=== PATIENT | male | born 1975 ===

== ENCOUNTER 2016-11-01 19:46 | Observation (INO) | payer BC ==
--- NOTE | 2016-11-01 20:17 | C.PDOC ---
History Of Present Illness 41 y/o male presents to the ED for evaluation of new onset headache which began around 6 days ago. Patient reports headache is localized to right occipital region, occurring intermittently and persist. Patient notes "I feel a bump in the area." Symptoms are worse with movement. Denies fever, nausea, vomiting as well as history of frequent headaches, or trauma. NEW ONSET WEINBERG X 6 DAYS. LOCALIZED OCCIPITAL R, INTERMIT PERSIST. "I FEEL A BUMP IN THE AREA". WORSE W MOVEMENT. NO FEVER, NV. DENIES HO FREQ WEINBERG, TRAUMA. EXAM MILD DIST NONTOXIC HEENT NO PHOTOPHOBIA; +MUSCLE SPASM R BASE SKULL W REPRODUC PAIN; NECK SUPPLE NONTEND NEURO INTACT REMIANDER NEG Time Seen by Provider: 11/01/16 20:07 Chief Complaint (Nursing): Headache History Per: Patient History/Exam Limitations: no limitations Onset/Duration Of Symptoms: Days (6) Current Symptoms Are (Timing): Still Present Quality: Aching Associated Symptoms: denies: Nausea, Vomiting Additional History Per: Patient Past Medical History Reviewed: Historical Data, Nursing Documentation, Vital Signs Vital Signs: Last Vital Signs Temp 98.3 F 11/02/16 15:00 Pulse 81 11/02/16 15:00 Resp 20 11/02/16 15:00 BP 149/93 H 11/02/16 15:00 Pulse Ox 100 11/02/16 15:00 - Medical History PMH: No Chronic Diseases Surgical History: No Surg Hx Family History: States: Unknown Family Hx - Social History Hx Alcohol Use: Yes Hx Substance Use: No - Immunization History Hx Tetanus Toxoid Vaccination: No Hx Influenza Vaccination: No Hx Pneumococcal Vaccination: No Review Of Systems Constitutional: Negative for: Fever Gastrointestinal: Negative for: Nausea, Vomiting Neurological: Positive for: Headache (localized to right occipital region ) Physical Exam - Physical Exam Appears: Non-toxic, Other (in mild distress ) Skin: Normal Color, Warm, Dry Head: Atraumatic, Normacephalic, Other (muslce spasm to right base skill with reproducible pain ) Eye(s): bilateral: Normal Inspection, Other (no photophobia) Ear(s): Bilateral: Normal Nose: Normal, No Discharge Oral Mucosa: Moist Neck: No Midline Cervical Tenderness, Supple Chest: Symmetrical, No Deformity, No Tenderness Cardiovascular: Rhythm Regular Respiratory: Normal Breath Sounds Extremity: Normal ROM, Capillary Refill (less than 2 seconds ) Neurological/Psych: Oriented x3, Normal Speech, Normal Cognition, Other (no focal deficits) Gait: Steady ED Course And Treatment - Laboratory Results Result Diagrams: 11/01/16 23:03 11/01/16 23:03 ECG: Interpreted By Me ECG Rhythm: Sinus Rhythm ECG Interpretation: Normal Rate From EC O2 Sat by Pulse Oximetry: 97 (on RA) Pulse Ox Interpretation: Normal - Radiology CXR: Interpreted by Me CXR Interpretation: Yes: No Acute Disease - CT Scan/US HEAD Other Rad Studies (CT/US): Read By Radiologist, Radiology Report Reviewed (D/W DR ESPOSITO @[facility]: STATES CT ANGIO OF LIMITED VALUE, RECOMMENDS MRI FOR FURTHER EVAL) Progress Note: CT Head ordered and reviewed. Patient received Flexril PO, Toradol IM, and Tylenol PO. Progress - Data Reviewed Data Reviewed: Lab, Diagnostic imaging, EKG, Old records - Continuity of Care Discussed patient case with:: Patient, On-call PMD-pt unassigned Discussed pt. case with identity management consultant/specialty: Neurological Surgery ED OBSERVATION Date of observation admission: 11/01/16 Time of observation admission: 20:30 - Observation admission statement Patient is being placed in observation because:: HEADACHE - Goals of Observation Goals of observation are:: SX IMPROVE, CT NEG, NEURO INTACT - Progress Note Progress Note: 11/01/16 22:13 ps feels better, weinberg resolved. VSS. NEURO INTACT [facility] FROM PRIOR EXAM. 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 WILL D/W [facility] FOR POSSIBLE TRANSFER FOR STAT MRI, POSISBLE NEUROSURG INTERVENTION 11/01/16 22:45 D/W DR [facility]: AWARE OF ER FINDINGS. RECOMMENDS CT ANGIO, CALLBACK W RESULTS. PT AGREES W PLAN. 11/02/16 01:24 [facility] REPORT REVIEWED. D/W DR BENOIT AWARE OF [facility] FINDINGS, ADVISES NO EMERGENT NEED FOR TRANSFER. 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 I have reviewed the chart and agree that the record accurately reflects my personal performance of the history, physical exam, medical decision making, and the department course for this patient. I have also personally directed, reviewed, and agree with the discharge instructions and disposition. Decision To Admit - Pt Status Changed To: Hospital Disposition Of: Observation - . Bed Request Type: Regular Admitting Physician: Jeannette Velasquez Patient Diagnosis: Headache, Abnormal CT of brain
--- NOTE | 2016-11-01 22:02 | CT ---
EXAM: CT Head Without Intravenous Contrast EXAM DATE/TIME: 11/01/2016 8:17 PM CLINICAL HISTORY: 41 years old, male; Condition or disease; Headache; Tension; Additional info: R occipital WEINBERG TECHNIQUE: Axial computed tomography images of the head/brain without intravenous contrast. All CT scans at this facility use one or more dose reduction techniques, viz.: automated exposure control; ma/kV adjustment per patient size (including targeted exams where dose is matched to indication; i.e. head); or iterative reconstruction technique. COMPARISON: There are no prior studies for comparison. FINDINGS: Brain: Ventricles are normal in size and configuration. There is no midline shift. There is an 12 x 12 mm hyperdense lesion in the posterior left parietal lobe. No other focal abnormalities are identified.. There are no abnormal fluid collections. Shaikh-white differentiation is maintained. Ventricles: See above. Bones: Cranial vault is intact. Soft tissues: unremarkable Sinuses: There is no acute sinusitis. Ears and mastoids: Middle ears and mastoids are unremarkable Orbits: Orbital contents are unremarkable. IMPRESSION: 12 x 12 mm hyperdense lesion in left posterior parietal lobe, differential diagnosis includes focal hemorrhage, vascular malformation or tumor Comparison with prior studies and/or MRI is advised
[2016-11-01 23:07] LABS: BASO % 0.3 % (0.0-2.0); EOS # 0.1 K/uL (0.0-0.7); HEMATOCRIT 42.6 % (35.0-51.0); LYMPH % 37.5 % (20.0-40.0); MEAN CELL VOLUME 86.3 fL (80.0-94.0); MEAN CORPUSCULAR HEMOGLOBIN 29.8 pg (27.0-31.0); MEAN CORPUSCULAR HGB CONC 34.6 g/dL (33.0-37.0); MEAN PLATELET VOLUME 8.7 fL (7.2-11.7); MONO # 0.6 K/uL (0.0-0.8); MONO % 7.7 % (0.0-10.0); NRBC % 0.1 % (0.0-2.0); RED CELL DISTRIBUTION WIDTH 12.8 % (11.5-14.5); WHITE BLOOD COUNT 7.9 K/uL (4.8-10.8)
[2016-11-01] MEDS ORDERED: Iodixanol 320 MG/ML 100 ML BOTTLE IV ONE (23:11)
[2016-11-01 23:16] LABS: RBC URINE < 1 /hpf (0-3); URINE BACTERIA RARE (<OCC); URINE BILIRUBIN NEGATIVE (NEGATIVE); URINE BLOOD NEGATIVE (NEGATIVE); URINE COLOR Yellow (YELLOW); URINE GLUCOSE (UA) NORMAL (Normal); URINE KETONE NEGATIVE (NEGATIVE); URINE LEUKOCYTE ESTERASE NEG Leu/uL (Negative); URINE PROTEIN NEGATIVE (NEGATIVE); URINE UROBILINOGEN NORMAL mg/dL (0.2-1.0); WBC URINE 1 /hpf (0-5)
[2016-11-01 23:16] LABS: CHLORIDE 101 mmol/L (98-107); POTASSIUM 3.7 mmol/L (3.6-5.2); SODIUM 138 mmol/L (132-148)
[2016-11-01 23:18] LABS: GFR AFRICAN-AMERICAN > 60
[2016-11-01 23:19] LABS: ALB/GLOB RATIO 1.5 (1.0-2.1); ALKALINE PHOSPHATASE 72 U/L (38-126); ALT/SGPT 44 U/L (21-72); AST/SGOT 27 U/L (17-59); BILIRUBIN,TOTAL 0.6 mg/dL (0.2-1.3); BLOOD UREA NITROGEN 17 mg/dL (9-20); CALCIUM 8.8 mg/dl (8.6-10.4); CARBON DIOXIDE 24 mmol/L (22-30); GLUCOSE,RANDOM 92 mg/dL (75-110); TOTAL PROTEIN 7.5 g/dL (6.3-8.3)
--- NOTE | 2016-11-02 07:43 | RAD ---
PROCEDURE: CHEST RADIOGRAPH, 1 VIEW HISTORY: Pre Op COMPARISON: None available. FINDINGS: LUNGS: No focal infiltrate or effusion. PLEURA: No pneumothorax or pleural fluid seen. CARDIOVASCULAR: Normal. OSSEOUS STRUCTURES: No significant abnormalities. VISUALIZED UPPER ABDOMEN: Normal. OTHER FINDINGS: None. IMPRESSION: No active disease.
--- NOTE | 2016-11-02 09:11 | CT ---
PROCEDURE: CT Angiography of the Brain. HISTORY: Abnormal CT HEAD, L PARIETAL RO BLEED VS MASS COMPARISON: Comparison is made to the previous noncontrast CT dated 11/01/2016 at 20:48 TECHNIQUE: CT angiography of the intracranial arteries was performed. Coronal and sagittal maximum intensity projection reformated images were generated. IV contrast dose: 100 mL Visipaque 320. Total exam DLP 141.[address] exam was performed using one or more of the following dose reduction techniques: Automated exposure control, adjustment of the mA and/or kV according to patient size, and/or use of iterative reconstruction technique. FINDINGS: INTERNAL CEREBRAL ARTERIES: Unremarkable. The skull base, petrous, cavernous and supraclinoid segments are bilaterally widely patient. ANTERIOR CEREBRAL ARTERIES: Unremarkable. A1 and A2 segments are widely patent. Smaller distal branches unremarkable, as visualized. MIDDLE CEREBRAL ARTERIES: Unremarkable. M1 and M2 segments are widely patent. Perisylvian branches grossly symmetric. POSTERIOR CIRCULATION: Basilar Artery: Unremarkable. Distal Vertebral Arteries: Unremarkable. Posterior Cerebral Arteries: Unremarkable. Posterior Inferior Cerebellar Arteries: Unremarkable. ANEURYSM/ VASCULAR MALFORMATIONS: No CT evidence of sizable aneurysm. OTHER FINDINGS: The hyperdense nodule noted in the previous recent CT does not corresponding to and does not appear to be contiguous with major arterial or venous system the possibility of vascular malformation is less likely. This nodule also does not demonstrate arterial hyper enhancement in this CTA. IMPRESSION: No CTA evidence of aneurysm or vascular malformation at or adjacent to the previously depicted hyperintense nodule at the left parietal white matter. The possibility of underlying small hemorrhagic mass/metastasis is not totally excluded. Consider correlation with MRI with contrast for more definitive characterization of this lesion. No evidence of occlusion or stenosis in the intracranial arteries. Preliminary report was submitted by [facility] .
--- NOTE | 2016-11-02 15:47 | MRI ---
PROCEDURE: MRI BRAIN WITHOUT CONTRAST HISTORY: headache times , hyperintense round focus in the left parietal lobe seen in the previous CT. Evaluate for mass lesion or vascular anomaly COMPARISON: Comparison is made to the previous CT and CTA of the head. TECHNIQUE: Multiplanar, multisequence MR images of the brain were obtained without intravenous contrast enhancement. FINDINGS: HEMORRHAGE: Again seen is round lesion at the posterior aspect of the left parietal white matter demonstrates heterogeneous hypointense T2 signal and heterogeneous Iso and hyper intense T1 signal. There is rim of hypointense T2 GRE and T2 signal around this lesion. DWI: No evidence of an acute or early subacute infarction. BRAIN PARENCHYMA: The above-mentioned lesions at the posterior left parietal lobe measures 11.2 millimeter in the transverse diameter and 12.9 millimeter in the AP diameter. The shape and signal characteristic of this lesion suggestive of cerebral cavernous venous malformation. No atrophy or chronic microvascular ischemic changes. VENTRICLES: Unremarkable. No hydrocephalus. CRANIUM: Unremarkable. ORBITS: Grossly unremarkable. PARANASAL SINUSES/MASTOIDS: Clear VASCULAR SYSTEM: Skull base flow voids intact. OTHER FINDINGS: None. IMPRESSION: Well defined heterogeneous signal approximately 1.1 x 1.2 centimeter lesion at the posterior aspect of the left parietal white matter. 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 Small punctate hyperintense T1 signal seen in this lesion may represent acute/ early subacute hemorrhage. Otherwise no evidence of acute pathology or suspicious lesion in the brain.
[2016-11-02 15:59] VITALS: BP 149/93; PULSE 81; RESP 20; TEMP 98.3
--- NOTE | 2016-11-02 18:45 | CP.PCM.CON ---
History of Present Illness - History of Present Illness History of Present Illness: CONSULT DICTATED EXAM ? RIGHT SUB CORTICAL DYSFUNCTION -??? POST ICTAL INCIDENTAL MRI FINDING - CAVERNOMA NEEDS EEG AND AMBULATORY VIDEO EEG AN OP PSG BARBARA /CSA NSAID FOR HIS HEADACHE Past Patient History - Infectious Disease Hx of Infectious Diseases: None - Past Medical History & Family History Past Medical History?: No - Past Social History Smoking Status: Never Smoked - MUSCULOSKELETAL/RHEUMATOLOGICAL Hx Falls: No - PSYCHIATRIC Hx Substance Use: No - SURGICAL HISTORY Hx Surgeries: No - ANESTHESIA Hx Anesthesia: No Meds Allergies/Adverse Reactions: Allergies Allergy/AdvReac Type Severity Reaction Status Date / Time No Known Allergies Allergy Unverified 11/01/16 19:55 - Medications Medications: Current Medications Famotidine (Pepcid) 20 mg PO DAILY SUNNY Last Admin: 11/02/16 09:48 Dose: 20 mg Pneumococcal Polyvalent Vaccine (Pneumovax 23 Vaccine) 0.5 ml IM .ONCE ONE Stop: 11/03/16 10:01 Results - Vital Signs Recent Vital Signs: Last Vital Signs Temp 98.3 F 11/02/16 15:00 Pulse 81 11/02/16 15:00 Resp 20 11/02/16 15:00 BP 149/93 H 11/02/16 15:00 Pulse Ox 100 11/02/16 15:00 - Labs Result Diagrams: 11/01/16 23:03 11/01/16 23:03 Labs: Laboratory Results - last 24 hr 11/01/16 11/01/16 11/01/16 22:45 23:03 23:03 WBC 7.9 RBC 4.94 Hgb 14.7 Hct 42.6 MCV 86.3 MCH 29.8 MCHC 34.6 RDW 12.8 Plt Count 184 MPV 8.7 Neut % (Auto) 53.5 Lymph % (Auto) 37.5 Menard % (Auto) 7.7 Eos % (Auto) 1.0 Baso % (Auto) 0.3 Neut # 4.2 Lymph # 3.0 Menard # 0.6 Eos # 0.1 Baso # 0.0 PT 10.9 INR 1.0 APTT 28 Sodium Potassium Chloride Carbon Dioxide Anion Gap BUN Creatinine Est GFR ( Amer) Est GFR (Non-Af Amer) Random Glucose Calcium Total Bilirubin AST ALT Alkaline Phosphatase Total Protein Albumin Globulin Albumin/Globulin Ratio Urine Color Urine Clarity Urine pH Ur Specific Greenleaf Urine Protein Urine Glucose (UA) Urine Ketones Urine Blood Urine Nitrate Urine Bilirubin Urine Urobilinogen Ur Leukocyte Esterase Urine WBC (Auto) Urine RBC (Auto) Urine Bacteria Blood Type O POSITIVE Antibody Screen Negative 11/01/16 11/01/16 23:03 23:04 WBC RBC Hgb Hct MCV MCH MCHC RDW Plt Count MPV Neut % (Auto) Lymph % (Auto) Menard % (Auto) Eos % (Auto) Baso % (Auto) Neut # Lymph # Menard # Eos # Baso # PT INR APTT Sodium 138 Potassium 3.7 Chloride 101 Carbon Dioxide 24 Anion Gap 17 BUN 17 Creatinine 0.8 Est GFR ( Amer) > 60 Est GFR (Non-Af Amer) > 60 Random Glucose 92 Calcium 8.8 Total Bilirubin 0.6 AST 27 ALT 44 Alkaline Phosphatase 72 Total Protein 7.5 Albumin 4.5 Globulin 3.0 Albumin/Globulin Ratio 1.5 Urine Color Yellow Urine Clarity Clear Urine pH 6.0 Ur Specific Greenleaf 1.029 Urine Protein Negative Urine Glucose (UA) Normal Urine Ketones Negative Urine Blood Negative Urine Nitrate Negative Urine Bilirubin Negative Urine Urobilinogen Normal Ur Leukocyte Esterase Neg Urine WBC (Auto) 1 Urine RBC (Auto) < 1 Urine Bacteria Rare Blood Type Antibody Screen
--- NOTE | 2016-11-03 01:37 | CARD ---
APPROVED REPORT EKG Measurement Heart [id number] <Conclusion> Normal sinus rhythm Left axis deviation Incomplete right bundle branch block Abnormal ECG
--- NOTE | 2016-11-03 02:18 | CON ---
DATE: 11/02/2016 The patient's physician, Dr. Velasquez. The patient's room #653, bed 3. REASON FOR CONSULTATION: Headache and abnormal radiological findings. CHIEF COMPLAINT: The patient was admitted with history of progressive 5 to 6 days headache which is localized over his right side. During workup, the patient found to have abnormal MRI. From neurologic point of view, I was called in to evaluate her for further management. HISTORY OF PRESENT ILLNESS: The patient is a 41-year-old right-handed Greenlandic speaking jenkins presenting with 6 days history of headache which is localized over his right occipital region. This headache also getting recurrent when he does sex. This headache not associated with nausea or vomiting. No history of visual or verbal dysfunction. No history of neck stiffness. No history of neck pain or radicular pain from his neck. No history of involuntary movements. However, the patient noticed while he was sleeping, snoring, grasping with startled myoclonus of his whole body at times. Not associated with bowel or bladder incontinence. No history of bitten tongue. PAST MEDICAL HISTORY: Unremarkable. PERSONAL HISTORY: He smokes weed at times. He denies drinking. REVIEW OF SYSTEMS: A 12-point review of systems being reviewed. From neurologically, headache. MEDICATIONS: Famotidine and Tylenol. PHYSICAL EXAMINATION VITAL SIGNS: Blood pressure 149/93, mean arterial pressure of 111, respiratory rate 16, temperature 98.3, pulse rate of 81, regular. NECK: Supple, no carotid bruit. HEART: Sounds are regular. CHEST: Good air entry. EXTREMITIES: No edema of legs. NEUROLOGICAL EXAMINATION: Mental status examination: He is awake, alert, and oriented to person, place and time. Speech is clear. Naming, repetition, fluency, and comprehension all within normal. Cranial nerve examination: Visual field intact. Pupils are reactive to light. Extraocular movements normal. No nystagmus. No facial sensory deficits. No facial asymmetry. Hearing is normal. Tongue is midline. Good gag. Motor examination: On outstretched hand with eyes closed, no drift noted. Power is symmetric on either side. Deep tendon reflexes: It seems to be left 2+, right side 1+ in biceps, brachialis, triceps, knee. Left plantars are upgoing to compare with right side. Coordination: [id number] test is intact. Gait is normal. WORKUP: MRI of the brain reviewed by showed about 1.1 x 1.2 cm lesion at left parietal deep white matter area. 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 No mass affect around this lesion. The patient also did have CT angiogram which was reported as no aneurysm or vascular malformation at the left parietal matter. There was possibility of hemorrhagic mass metastatic which cannot be excluded as per the report. BLOOD WORKUP: WBC 7.9, hemoglobin 14.7, hematocrit 42.6 and platelet 184. PT 7.9, INR 1.0, PTT 28. Sodium 138, potassium 3.7, chloride 101, bicarbonate of 24. Liver functions normal. Urine normal. No toxic screen is done. CONCLUSION: Upon reviewing his history and neurological examination, the patient has been presenting with headache associated with exertion. 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 considering his abnormal location, the patient should have electroencephalogram if possible ambulatory video electroencephalogram to rule out any focal seizures. If the abnormal examination is could be a postictal phenomena. His history suggestive of nocturnal myoclonus versus nocturnal seizures or the obstructive sleep apnea which should be studied as polysomnogram which can be done as outpatient as well. In the meantime, the patient is advised to have proper good sleeping hours at least 8 hours per night and stay away from illicit drugs. The patient also recommended to drink lot of water. His headache can be treated with NSAID for now. The patient will be followed if he stays in the hospital; however, if the patient is neurologically cleared in then next 2 days, then no further workup could be done. The patient will be followed as outpatient. Jass Dunn MD
[2016-11-03] MEDS ORDERED: Pneumococcal 23-Valent Vaccine IM ONE (10:00)
[2016-11-04 08:12] VITALS: O2SAT 97
--- NOTE | 2016-11-04 14:24 | HP ---
CHIEF COMPLAINT: Headache. HISTORY OF PRESENT ILLNESS: A 41-year-old male who came to the emergency room for evaluation of new onset of headache and it began around 6 days ago. The patient reports the headache is localized to the right occipital region, occurring intermittently and persists. The patient said, "I feel a bump in the area," and seems it gets worse with movement. Denies fever, chills, nausea, vomiting or diarrhea. No trauma. We admitted the patient, did CAT scan of the head, reviewed by me. The patient has a 12 x 12 hyperdense lesion in the left posterior parietal lobe. Differential diagnoses include focal hemorrhage, vascular malformation or tumor. Chest x-ray was done. Echocardiography done. CT angio was done. No CT evidence of aneurysm or vascular malformation at or in the circumference of the previously deficit hyperintense nodule at the left parietal white matter. Because of the currently underlying small hemorrhage mass, metastasis is not totally excluded, and concern was correlated with MRI with contrast for a more definite characterization. No evidence of occlusion or stenosing of the intracranial arteries and then the patient went for a brain MRI. According to Dr. Dominguez, well-defined heterogenous signal of approximately 1.1 x 1.2 cm lesion at the posterior aspect of the left parietal white matter. and the shape of this lesion is suggestive of cerebral cavernous venous malformation, a small punctate hyperdense signal. This signal may represent acute and early subacute hemorrhage. The patient was seen by Dr. Jass Dunn. The patient has been presenting with the headache. According to Dr. Dunn, the patient need left encephalography, possibly ambulatory video left encephalograph to rule out focal seizures. If it is a normal examination, it could be postictal phenomenon. According to Dr. Dunn, his headache can be treated with naproxen. The patient will be followed if he stays in the hospital. If the patient is neurologically cleared in the next 2 days, then no further workup could be done. Actually Dr. Dunn cleared that the patient be discharged to home and followed up as an outpatient for further workup and for followup. The patient was educated that if headache will come or some symptoms will come, come back to the hospital. PAST MEDICAL HISTORY: Nonsignificant. FAMILY HISTORY: Father and mother, noncontributory. HABITS: Alcohol, yes. Substance abuse, no. Smoking, no. REVIEW OF SYSTEMS: The patient was seen and examined at bedside. Looking comfortable. No nausea, vomiting or diarrhea. No hematuria. No hematochezia. No swelling of the leg. No chest pain. No palpitations. No headache. No dizziness. ALLERGIES: THE PATIENT IS NOT ALLERGIC TO ANY MEDICATION. PHYSICAL EXAMINATION: VITAL SIGNS: Temperature 98.3, pulse 81, blood pressure 114/93, respiratory rate 20. HEENT: Head is normocephalic and atraumatic. Eyes: PERRLA. Extraocular muscles intact. Conjunctivae clear. Nose: Patent. Mucous membranes are moist. NECK: Supple. No carotid bruits, JVD, or thyromegaly. CHEST: Bilaterally symmetrical. HEART: S1 and S2 positive. LUNGS: Clear to auscultation. ABDOMEN: Soft. Bowel sounds positive. No organomegaly. EXTREMITIES: No edema, no cyanosis. NEUROLOGIC: The patient is awake and alert. Moving all 4 extremities. No focal deficits at this moment. LABORATORY DATA: White blood cells 7.9, hemoglobin 14.7, hematocrit 42.6 and platelets 184. Sodium 130, potassium 3.7, BUN 7, creatinine 0.8. AST 27, ALT 44. ASSESSMENT AND PLAN: Mr. Roman Prasad is a 41-year-old male with known significant past medical history, who came in with chest pain. CAT scan of the head, CT angiography and brain MRI were done. The patient was seen by Dr. Jass Dunn. According to him, the patient does not have any neurological deficits. He has headache associated with exertion. According to him, the patient maybe has subcortical dysfunction; however, the review of study shows left parietal deep white matter cavernous tumor versus cavernoma. The patient should need left encephalography and possibly ambulatory video left encephalography to rule out any focal seizures. Maybe, upon examination, it could be postictal phenomenon. According to Dr. Dunn, maybe the patient is getting nocturnal myoclonus versus nocturnal seizures or obstructive sleep apnea syndrome. He need polysomnographic studies which can be done as outpatient. Meanwhile, the patient is advised to have proper good sleep hygiene of at least 8 hours per night and stay away from illicit drugs. The patient was recommended to drink water. His headache can be treated with NSAID for now. Because of weekend, the patient want to go home. The patient's is standing on the bedside also. The patient will follow up in my office and Dr. Dunn's office. Jeannette Velasquez MD MTDAnthony
--- NOTE | 2016-11-05 00:11 | DS ---
The patient is a 41-year-old male. The patient was seen by me on 11/02/2016 and by neurologist on 11/02/2016, discharged him on the same day, so for more details see my H&P of the same day. It has details of the discharge instructions also. Jeannette Velasquez MD MTDD
== END 2016-11-02 20:15 | disposition home or self-care (01) ==
LOC: SUPCPDRO 19:46 → C.ER 19:46 → C.9OBSV 22:30 → C.6T 11-02 01:34
PROVIDERS: ADMIT Internal Medicine; ATTEND Internal Medicine
DX: R51 Headache (principal); F12.90 Cannabis use, unspecified, uncomplicated; G25.3 Myoclonus
CPT/HCPCS: 36415; 70450; 70496; 70551; 71010; 80053; 81001; 85025; 85610; 85730; 86850; 86900; 93005; 96372; 99285; G0378; J1885; Q9967

== ENCOUNTER 2017-05-13 14:21 | Emergency (ER) | payer BC ==
[2017-05-13 14:31] VITALS: BP 165/84; PULSE 75; RESP 20; TEMP 97.4; O2SAT 100
--- NOTE | 2017-05-13 14:52 | C.PDOC ---
History Of Present Illness 41 y/o male presents to ED with complaints of itchy rash to arms and legs for 2 weeks. Patient reports is at ED with same symptoms and denies new detergens , unusual food intake, lip or tongue swelling, bugs on linens, throat closing sensation, sob, chest pain or any other complaint at this time. Time Seen by Provider: 05/13/17 14:31 Chief Complaint (Nursing): Allergic Reaction History Per: Patient History/Exam Limitations: no limitations Onset/Duration Of Symptoms: Days Current Symptoms Are (Timing): Still Present Past Medical History Reviewed: Historical Data, Nursing Documentation, Vital Signs Vital Signs: Last Vital Signs Temp 97.4 F L 05/13/17 14:29 Pulse 75 05/13/17 14:29 Resp 20 05/13/17 14:29 BP 165/84 H 05/13/17 14:29 Pulse Ox 100 05/13/17 14:53 - Medical History PMH: No Chronic Diseases Surgical History: No Surg Hx Family History: States: No Known Family Hx - Social History Hx Alcohol Use: Yes Hx Substance Use: No - Immunization History Hx Tetanus Toxoid Vaccination: No Hx Influenza Vaccination: No Hx Pneumococcal Vaccination: No Review Of Systems Except As Marked, All Systems Reviewed And Found Negative. Constitutional: Negative for: Fever, Chills Cardiovascular: Negative for: Chest Pain Respiratory: Negative for: Shortness of Breath Skin: Positive for: Rash Physical Exam - Physical Exam Appears: Non-toxic, No Acute Distress Skin: Warm, Dry, Rash (Mild maculopapular rash to arms and legs. sparing palms) Head: Atraumatic Eye(s): bilateral: Normal Inspection Oral Mucosa: Moist Tongue: Normal Appearing, No Swelling Lips: Normal Appearing, No Swelling Throat: Normal, No Erythema, No Exudate Cardiovascular: Rhythm Regular Respiratory: Normal Breath Sounds, No Rales, No Rhonchi, No Wheezing Extremity: Normal ROM, Capillary Refill (<2 seconds) Neurological/Psych: Oriented x3, Normal Speech ED Course And Treatment O2 Sat by Pulse Oximetry: 100 (RA) Pulse Ox Interpretation: Normal Progress Note: Prednisone and Benadryl administered. Patient discharged with prescriptions Disposition Counseled Patient/Family Regarding: Diagnosis, Need For Followup, Rx Given - Disposition Referrals: [facility] [Outside] Disposition: HOME/ ROUTINE Disposition Time: 14:00 Condition: STABLE Additional Instructions: FOLLOW UP WITH YOUR DOCTOR/CLINIC IN 1-2 DAYS USE MEDICATIONS DIRECTED WASH ALL LINENS IN HOT WATER RETURN TO EMERGENCY ROOM IF SYMPTOMS WORSEN SEGUIMIENTO CON THORNE MDICO / [place] EN 1-2 STEPHENSON USE MEDICAMENTOS SEGN LO INDICADO LAVE [place] EN [place] REGRESE AL FIDENCIO DE EMERGENCIA SI LOS SNTOMAS EMPEORAN Prescriptions: DiphenhydrAMINE [Benadryl] 25 mg PO Q6 PRN #20 cap PRN Reason: Itching / Pruritus Hydrocortisone 1% Cream [Cortizone 1% Cream] 1 appl TP TID #1 tube predniSONE [predniSONE Tab] 40 mg PO DAILY #8 tab Instructions: Dermatitis, Skin Rash (DC) Forms: [employer] (Belizean) Print Language: FRISIAN - Clinical Impression Clinical Impression: Rash, Dermatitis - Scribe Statement The provider has reviewed the documentation as recorded by the Guadalupeibjohnny Jessica All medical record entries made by the Guadalupeibe were at my direction and personally dictated by me. I have reviewed the chart and agree that the record accurately reflects my personal performance of the history, physical exam, medical decision making, and the department course for this patient. I have also personally directed, reviewed, and agree with the discharge instructions and disposition.
== END 2017-05-13 15:15 | disposition home or self-care (01) ==
LOC: C.ER 14:21
DX: L30.9 Dermatitis, unspecified (principal)

== ENCOUNTER 2017-09-19 13:22 | Emergency (ER) | payer BC ==
[2017-09-19 13:34] VITALS: BP 118/71; PULSE 86; RESP 16; TEMP 98; O2SAT 98
--- NOTE | 2017-09-19 13:48 | C.PDOC ---
History Of Present Illness 41 yo male come in for evaluation of Right knee pain gradually developed for past week after sustained trauma. Pt reports, " hit my knee over wall by accident". Pt c/o posterior Right knee pain, worse with weight bearing. Otherwise, pt denies obvious deformity, skin changes, weakness, sensory or vascular deficits to Right knee and leg. Ambulate to ED for evaluation, not in any apparent distress. Time Seen by Provider: 09/19/17 13:32 Chief Complaint (Nursing): Lower Extremity Problem/Injury History Per: Patient Past Medical History Reviewed: Historical Data, Nursing Documentation, Vital Signs Vital Signs: Last Vital Signs Temp 98 F 09/19/17 13:30 Pulse 86 09/19/17 13:30 Resp 16 09/19/17 13:30 BP 118/71 09/19/17 13:30 Pulse Ox 98 09/19/17 13:55 - Medical History PMH: No Chronic Diseases Surgical History: No Surg Hx Family History: States: Unknown Family Hx - Social History Hx Tobacco Use: No Hx Alcohol Use: Yes Hx Substance Use: No - Immunization History Hx Tetanus Toxoid Vaccination: No Hx Influenza Vaccination: No Hx Pneumococcal Vaccination: No Review Of Systems Except As Marked, All Systems Reviewed And Found Negative. Constitutional: Negative for: Fever, Chills ENT: Negative for: Throat Pain Musculoskeletal: Positive for: Other (Right knee pain). Negative for: Neck Pain , Back Pain Skin: Negative for: Rash, Bruising Neurological: Negative for: Weakness, Numbness Physical Exam - Physical Exam Appears: Well, Non-toxic, No Acute Distress Skin: Normal Color, Warm, No Rash, No Ecchymosis Extremity: Normal ROM (mild discofmortto Right knee flexion due to pain. No neurovascular deficsit distally to injury.), Tenderness (mild posterior aspect Right knee), No Calf Tenderness, Capillary Refill (lessthan 2sec to Right foot) , No Deformity, No Swelling Neurological/Psych: Oriented x3, Normal Speech, Normal Motor, Normal Sensation, Normal Reflexes ED Course And Treatment O2 Sat by Pulse Oximetry: 98 - Other Rad Right knee X-Ray: Interpreted by Me, Viewed By Me Interpretation: (-) acute fx or dislocation Progress Note: On re-eval, pt is afebrile, hemodynamicaly stable. NOn-toxic. Ambulatory in ED with stable gait. Right knee: mild tenderness over posterior aspect Right knee. No deformity, no neurovascular deficits. Imaging review (-) acute fx or dislocation. Jerrell wrape applied to Right knee, NSAIDs. Pt advised and ref. to f/u with Ortho in 2-3 days for re-eval. return to ED if any worsening or new changes. Disposition Counseled Patient/Family Regarding: Studies Performed, Diagnosis, Need For Followup, Rx Given - Disposition Referrals: Atul Brothers MD [Staff Provider] - Disposition: HOME/ ROUTINE Disposition Time: 13:51 Condition: STABLE Additional Instructions: RICE-rest,ice,compression,elevation Avoid prolong walking Take medication as prescribed Follow up with Orthopedist in 2-3 days for re-evaluation as need return to ED if any worsening or new changes. Prescriptions: Ibuprofen [Motrin Tab] 600 mg PO TID #20 tab Instructions: Knee Sprain (DC) Forms: [employer] (Georgian) - Clinical Impression Clinical Impression: Contusion, knee
--- NOTE | 2017-09-19 14:32 | RAD ---
Date of service: 09/19/2017 PROCEDURE: Right Knee Radiographs. HISTORY: injury COMPARISON: None. FINDINGS: BONES: No fracture. A sub cm benign central tibial apophyseal interosseous cystic focus Minimal tibial spine spurring present JOINTS: Mild osteoarthritis. JOINT EFFUSION: Small suprapatellar joint effusion suggested. OTHER FINDINGS: None. IMPRESSION: No fracture. Benign findings as above. Small suprapatellar joint effusion and mild osteoarthrosis suggested
== END 2017-09-19 14:10 | disposition home or self-care (01) ==
LOC: C.ER 13:22
DX: S80.01XA Contusion of right knee, initial encounter (principal); W22.01XA Walked into wall, initial encounter